=== PATIENT | female | born 1945 | race Caucasian/White ===

== ENCOUNTER 2023-07-11 07:30 | Outpatient (RCR) | payer OTHER, SELFPAY | END 2023-07-11 23:59 | disposition home or self-care (01) | LOC: RPT 07:30 | PROVIDERS: ATTENDING PHYSICIAN Family Medicine | DX: R10.9 Unspecified abdominal pain (principal); R25.3 Fasciculation; M62.830 Muscle spasm of back; Z73.6 Limitation of activities due to disability | CPT/HCPCS: 97010; 97110; 97112; 97140; 97162 ==

== ENCOUNTER → 2023-07-14 07:37 | Outpatient (REF) | payer OTHER, SELFPAY | LOC: RAD 07:37 | PROVIDERS: ATTENDING PHYSICIAN Internal Medicine Hematology & Oncology; FAMILY PHYSICIAN Family Medicine | DX: C34.32 Malignant neoplasm of lower lobe, left bronchus or lung (principal) | CPT/HCPCS: 71260; Q9967 ==

== ENCOUNTER 2023-07-21 06:44 | Outpatient (RCR) | payer OTHER, SELFPAY | END 2023-07-24 07:30 | disposition home or self-care (01) | LOC: RPT 06:44 | PROVIDERS: ATTENDING PHYSICIAN Family Medicine | DX: R10.9 Unspecified abdominal pain (principal); R25.3 Fasciculation; M62.830 Muscle spasm of back; Z73.6 Limitation of activities due to disability | CPT/HCPCS: 97110; 97140; 97535 ==

== ENCOUNTER → 2023-08-21 08:07 | Outpatient (REF) | payer OTHER, SELFPAY ==
[2023-08-21 08:35] LABS: % Eosinophils 1.5 % (0-6); % Immature Granulocytes 0.2 % (0-0.5); % Lymphocytes 40.9 % (20.5-51.1); % Monocytes 12.7 % (1.7-9.3); % Neutrophils 43.7 % (42.2-75.2); Absolute Eosinophils 0.1 10^3/uL (0-0.7); Absolute Lymphocytes 1.7 10^3/uL (1.2-3.4); Absolute Monocytes 0.5 10^3/uL (0.1-0.6); Absolute Neutrophils 1.8 10^3/uL (1.4-6.5); Hematocrit 42.1 % (37.0-47.0); Hemoglobin 14.5 g/dL (12.0-16.0); Mean Corp Hgb Conc. 34.4 g/dL (33.0-37.0); Mean Corpuscular Hgb 30.5 pg (27.0-31.0); Mean Corpuscular Volume 88.4 fL (81.0-99.0); Mean Platelet Volume 9.1 fL (7.4-10.4); Nucleated Red Blood Cells % 0 %; Platelet Count 300 10^3/uL (130-400); Red Blood Cell Count 4.76 10^6/uL (4.20-5.40); Red Cell Dist. Width 11.8 % (11.5-14.5); White Blood Cell Count 4.1 10^3/uL (4.8-10.8)
[2023-08-21 09:07] LABS: ALT (SGPT) 35 U/L (0-35); AST (SGOT) 36 U/L (14-36); Albumin 4.5 g/dl (3.5-5.0); Alkaline Phosphatase 106 U/L (38-126); Blood Urea Nitrogen 24 mg/dl (7-17); Calcium 10.4 mg/dl (8.4-10.2); Carbon Dioxide 32 mmol/L (22-30); Chloride 97 mmol/L (98-107); Glucose 105 mg/dl (70-99); Potassium 4.5 mmol/L (3.5-5.1); Sodium 136 mmol/L (135-145); Total Bilirubin 0.9 mg/dl (0.2-1.3); Total Protein 7.4 g/dl (6.3-8.2); eGFR > 60.00
== END ==
LOC: REG 08:07
PROVIDERS: ATTENDING PHYSICIAN Internal Medicine Hematology & Oncology; FAMILY PHYSICIAN Family Medicine
DX: C34.32 Malignant neoplasm of lower lobe, left bronchus or lung (principal)
CPT/HCPCS: 36415; 80053; 85025

== ENCOUNTER → 2024-01-16 08:29 | Outpatient (REF) | payer OTHER, SELFPAY ==
[2024-01-16 10:20] LABS: % Basophils 0.7 % (0-2); % Immature Granulocytes 0.2 % (0-0.5); % Lymphocytes 45.8 % (20.5-51.1); % Monocytes 9.6 % (1.7-9.3); % Neutrophils 41.7 % (42.2-75.2); Absolute Eosinophils 0.1 10^3/uL (0-0.7); Absolute Lymphocytes 2.1 10^3/uL (1.2-3.4); Absolute Monocytes 0.4 10^3/uL (0.1-0.6); Absolute Neutrophils 1.9 10^3/uL (1.4-6.5); Hematocrit 39.2 % (37.0-47.0); Hemoglobin 13.3 g/dL (12.0-16.0); Mean Corp Hgb Conc. 33.9 g/dL (33.0-37.0); Mean Corpuscular Hgb 29.4 pg (27.0-31.0); Mean Corpuscular Volume 86.5 fL (81.0-99.0); Mean Platelet Volume 9.3 fL (7.4-10.4); Nucleated Red Blood Cells % 0 %; Platelet Count 290 10^3/uL (130-400); Red Blood Cell Count 4.53 10^6/uL (4.20-5.40); Red Cell Dist. Width 12.3 % (11.5-14.5); White Blood Cell Count 4.5 10^3/uL (4.8-10.8)
[2024-01-16 15:23] LABS: ALT (SGPT) 28 U/L (0-35); AST (SGOT) 37 U/L (14-36); Albumin 4.4 g/dl (3.5-5.0); Alkaline Phosphatase 111 U/L (38-126); Blood Urea Nitrogen 17 mg/dl (7-17); Carbon Dioxide 26 mmol/L (22-30); Chloride 101 mmol/L (98-107); Glucose 98 mg/dl (70-99); HDL Cholesterol 62 mg/dl; LDL Cholesterol, Calculated 132 mg/dl; Potassium 4.8 mmol/L (3.5-5.1); Sodium 135 mmol/L (135-145); Total Bilirubin 0.8 mg/dl (0.2-1.3); Total Cholesterol 226 mg/dl (50-199); Triglyceride 164 mg/dl (10-149); Very Low Density Lipoprotein 32 mg/dl (0-30); eGFR > 60.00
== END ==
LOC: REG 08:29
PROVIDERS: ATTENDING PHYSICIAN Internal Medicine Cardiovascular Disease; FAMILY PHYSICIAN Family Medicine; REFERRING PHYSICIAN Internal Medicine Hematology & Oncology
DX: E78.5 Hyperlipidemia, unspecified (principal); C34.32 Malignant neoplasm of lower lobe, left bronchus or lung
CPT/HCPCS: 36415; 80053; 80061; 85025

== ENCOUNTER → 2024-03-14 12:11 | Outpatient (REF) | payer OTHER, SELFPAY | LOC: RAD 12:11 | PROVIDERS: ATTENDING PHYSICIAN Family Medicine | DX: M79.671 Pain in right foot (principal); M79.672 Pain in left foot | CPT/HCPCS: 73630 ==

== ENCOUNTER → 2024-03-16 08:34 | Outpatient (REF) | payer OTHER, SELFPAY ==
[2024-03-16 09:38] LABS: % Basophils 0.6 % (0-2); % Eosinophils 1.9 % (0-6); % Lymphocytes 38.8 % (20.5-51.1); % Monocytes 10.3 % (1.7-9.3); % Neutrophils 48.4 % (42.2-75.2); Absolute Eosinophils 0.1 10^3/uL (0-0.7); Absolute Lymphocytes 1.9 10^3/uL (1.2-3.4); Absolute Monocytes 0.5 10^3/uL (0.1-0.6); Absolute Neutrophils 2.3 10^3/uL (1.4-6.5); Hematocrit 40.5 % (37.0-47.0); Mean Corp Hgb Conc. 34.6 g/dL (33.0-37.0); Mean Corpuscular Hgb 30.2 pg (27.0-31.0); Mean Corpuscular Volume 87.5 fL (81.0-99.0); Nucleated Red Blood Cells % 0 %; Platelet Count 270 10^3/uL (130-400); Red Blood Cell Count 4.63 10^6/uL (4.20-5.40); Red Cell Dist. Width 12.4 % (11.5-14.5); White Blood Cell Count 4.8 10^3/uL (4.8-10.8)
[2024-03-16 10:05] LABS: ALT (SGPT) 29 U/L (0-35); AST (SGOT) 37 U/L (14-36); Albumin 4.6 g/dl (3.5-5.0); Alkaline Phosphatase 90 U/L (38-126); Blood Urea Nitrogen 19 mg/dl (7-17); Calcium 10.3 mg/dl (8.4-10.2); Carbon Dioxide 29 mmol/L (22-30); Chloride 102 mmol/L (98-107); Glucose 103 mg/dl (70-99); Potassium 4.7 mmol/L (3.5-5.1); Sodium 139 mmol/L (135-145); Total Bilirubin 0.6 mg/dl (0.2-1.3); eGFR > 60.00
== END ==
LOC: REG 08:34
PROVIDERS: ATTENDING PHYSICIAN Internal Medicine Hematology & Oncology; FAMILY PHYSICIAN Family Medicine
DX: C34.32 Malignant neoplasm of lower lobe, left bronchus or lung (principal)
CPT/HCPCS: 36415; 80053; 85025

== ENCOUNTER → 2024-03-21 11:23 | Outpatient (REF) | payer OTHER, SELFPAY | LOC: RAD 11:23 | PROVIDERS: ATTENDING PHYSICIAN Internal Medicine Hematology & Oncology; FAMILY PHYSICIAN Family Medicine | DX: C34.32 Malignant neoplasm of lower lobe, left bronchus or lung (principal) | CPT/HCPCS: 71260; 74177; Q9967 ==

== ENCOUNTER → 2024-05-27 07:55 | Outpatient (REF) | payer OTHER, SELFPAY ==
[2024-05-27 09:36] LABS: HDL Cholesterol 58 mg/dl; LDL Cholesterol, Calculated 21 mg/dl; Total Cholesterol 117 mg/dl (50-199); Triglyceride 194 mg/dl (10-149); Very Low Density Lipoprotein 38 mg/dl (0-30)
== END ==
LOC: REG 07:55
PROVIDERS: ATTENDING PHYSICIAN Internal Medicine Cardiovascular Disease
DX: E78.5 Hyperlipidemia, unspecified (principal)
CPT/HCPCS: 36415; 80061

== ENCOUNTER → 2024-05-29 07:59 | Outpatient (REF) | payer OTHER, SELFPAY | LOC: WDC 07:59 | PROVIDERS: ATTENDING PHYSICIAN Family Medicine | DX: Z12.31 Encounter for screening mammogram for malignant neoplasm of breast (principal) | CPT/HCPCS: 77063; 77067 ==

== ENCOUNTER → 2024-06-11 07:51 | Outpatient (REF) | payer OTHER, SELFPAY ==
[2024-06-11 08:21] LABS: Ionized Calcium 1.32 mMOL/L (1.15-1.33)
[2024-06-11 08:29] LABS: Hemoglobin 14.1 g/dL (12.0-16.0); Mean Corp Hgb Conc. 34.4 g/dL (33.0-37.0); Mean Corpuscular Hgb 30.1 pg (27.0-31.0); Mean Corpuscular Volume 87.4 fL (81.0-99.0); Mean Platelet Volume 9.2 fL (7.4-10.4); Platelet Count 284 10^3/uL (130-400); Red Blood Cell Count 4.69 10^6/uL (4.20-5.40); Red Cell Dist. Width 12.6 % (11.5-14.5)
[2024-06-11 08:49] LABS: ALT (SGPT) 28 U/L (0-35); AST (SGOT) 33 U/L (14-36); Albumin 4.5 g/dl (3.5-5.0); Alkaline Phosphatase 83 U/L (38-126); Blood Urea Nitrogen 18 mg/dl (7-17); Calcium 10.2 mg/dl (8.4-10.2); Carbon Dioxide 30 mmol/L (22-30); Chloride 100 mmol/L (98-107); Glucose 106 mg/dl (70-99); Potassium 4.5 mmol/L (3.5-5.1); Sodium 138 mmol/L (135-145); Total Bilirubin 0.8 mg/dl (0.2-1.3); eGFR > 60.00
[2024-06-11 09:21] LABS: % Eosinophils 2.7 % (0-6); % Monocytes 10.2 % (1.7-9.3); % Neutrophils 30.1 % (42.2-75.2); Absolute Eosinophils 0.1 10^3/uL (0-0.7); Absolute Lymphocytes 2.3 10^3/uL (1.2-3.4); Absolute Monocytes 0.4 10^3/uL (0.1-0.6); Absolute Neutrophils 1.2 10^3/uL (1.4-6.5); Nucleated Red Blood Cells % 0 %
[2024-06-11 09:39] LABS: Vitamin B12 > 1000 pg/ml (239-931)
[2024-06-12 10:41] LABS: Intact PTH 57.2 pg/ml (13.6-85.8)
== END ==
LOC: REG 07:51
PROVIDERS: ATTENDING PHYSICIAN Family Medicine
DX: R25.3 Fasciculation (principal)
CPT/HCPCS: 36415; 80053; 82330; 82607; 83970; 84443; 85025

== ENCOUNTER → 2024-09-06 08:56 | Outpatient (REF) | payer OTHER, SELFPAY ==
[2024-09-06 09:49] LABS: % Basophils 0.7 % (0-2); % Eosinophils 0.9 % (0-6); % Immature Granulocytes 0.2 % (0-0.5); % Lymphocytes 38.1 % (20.5-51.1); % Monocytes 9.3 % (1.7-9.3); % Neutrophils 50.8 % (42.2-75.2); Absolute Lymphocytes 1.7 10^3/uL (1.2-3.4); Absolute Monocytes 0.4 10^3/uL (0.1-0.6); Absolute Neutrophils 2.3 10^3/uL (1.4-6.5); Hematocrit 39.9 % (37.0-47.0); Mean Corp Hgb Conc. 35.1 g/dL (33.0-37.0); Mean Corpuscular Hgb 30.6 pg (27.0-31.0); Mean Corpuscular Volume 87.1 fL (81.0-99.0); Mean Platelet Volume 9.2 fL (7.4-10.4); Nucleated Red Blood Cells % 0 %; Platelet Count 273 10^3/uL (130-400); Red Blood Cell Count 4.58 10^6/uL (4.20-5.40); Red Cell Dist. Width 12.2 % (11.5-14.5); White Blood Cell Count 4.4 10^3/uL (4.8-10.8)
[2024-09-06 10:39] LABS: Free T4 1.06 ng/dl (0.78-2.19)
[2024-09-06 10:53] LABS: TSH 1.69 uIU/ml (0.47-4.68)
[2024-09-06 11:18] LABS: Calcium 10.6 mg/dl (8.4-10.2)
[2024-09-07 09:37] LABS: Intact PTH 53.5 pg/ml (13.6-85.8)
== END ==
LOC: REG 08:56
PROVIDERS: ATTENDING PHYSICIAN Family Medicine
DX: R79.89 Other specified abnormal findings of blood chemistry (principal); R25.3 Fasciculation
CPT/HCPCS: 36415; 83970; 84439; 84443; 85025

== ENCOUNTER → 2024-11-19 11:39 | Outpatient (REF) | payer OTHER, SELFPAY | LOC: DHSLP 11:39 | PROVIDERS: ATTENDING PHYSICIAN Internal Medicine Critical Care Medicine; FAMILY PHYSICIAN Family Medicine | DX: G47.30 Sleep apnea, unspecified (principal); R06.83 Snoring | CPT/HCPCS: 95800 ==

== ENCOUNTER 2024-12-21 15:21 | Emergency (ER) | payer OTHER, SELFPAY ==
[2024-12-21 15:22] VITALS: BP 198/99
[2024-12-21 15:47] LABS: Hematocrit 39.3 % (37.0-47.0); Hemoglobin 13.8 g/dL (12.0-16.0); Mean Corp Hgb Conc. 35.1 g/dL (33.0-37.0); Mean Corpuscular Volume 86.4 fL (81.0-99.0); Nucleated Red Blood Cells % 0 %; Platelet Count 283 10^3/uL (130-400); Red Cell Dist. Width 12.0 % (11.5-14.5)
[2024-12-21 16:02] LABS: ALT (SGPT) 26 U/L (0-35); AST (SGOT) 36 U/L (14-36); Albumin 4.6 g/dl (3.5-5.0); Alkaline Phosphatase 94 U/L (38-126); Blood Urea Nitrogen 19 mg/dl (7-17); Calcium 10.1 mg/dl (8.4-10.2); Carbon Dioxide 26 mmol/L (22-30); Chloride 99 mmol/L (98-107); Glucose 107 mg/dl (70-99); Potassium 4.3 mmol/L (3.5-5.1); Sodium 131 mmol/L (135-145); Total Protein 7.5 g/dl (6.3-8.2); eGFR > 60.00
[2024-12-21 16:03] LABS: Troponin I < 0.012 ng/ml
[2024-12-21 16:12] VITALS: BP 216/91
--- NOTE | 2024-12-21 16:54 | ED.GENMED ---
History of Present Illness
<George Moreno MD, Resident - Last Filed: 12/21/24 17:33>
General
Chief Complaint: Blood Pressure Problem
Source: patient and family
Exam Limitations: none
Time Seen by Provider: 12/21/24 16:37
Nursing documentation reviewed up to this point in time: agreed with
History of Present Illness
History of Present Illness:
This is a 79-year-old female with known history of hypertension, hyperlipidemia, unclear CVA; on Plavix presenting in the emergency department with concerns of elevated blood pressure. She states that she is on metoprolol ER 100 mg daily and since
her blood pressure was not well-controlled her chefs started her on Cardura 1 mg daily however she developed itching around the face and it was discontinued [address] ago[address] [employer] [address] Costa recommended patient to see on Monday.
Today patient was checking her blood pressure as she does routinely and she noticed her blood pressure was elevated with systolic blood pressure and 170, she took her metoprolol, blood pressure remained elevated and went up to 191/105 which prompted
her to visit the emergency department. She denies any chest pain, vision changes, trouble breathing, changes in bowels, any urinary symptoms or any other neurological deficits.
Past History
<George Moreno MD, Resident - Last Filed: 12/21/24 17:33>
Past History
ED Past Medical History: Cancer (Lung cancer s/p lobectomy in 2020), HTN and Hypercholesterolemia
ED Past Surgical History: Gynecological and Orthopedic
Patient has exhibited threatening behavior?: No
Social History
Tobacco: Non-smoker
Alcohol: None
Living: with family
Family History
Family History: Other (Noncontributory)
Review of Systems
<George Moreno MD, Resident - Last Filed: 12/21/24 17:33>
Review of Systems
Allergies reviewed?: Yes
Constitutional: Denies fever, fatigue, night sweats or chills
EENT: Denies sore throat
Respiratory: Denies cough
Cardiac: Denies chest pain
ABD/GI: Denies abdominal pain
: Denies dysuria
Musculoskeletal: Denies joint pain
Skin: Denies itching
Neurological: Denies dizzy
Endocrine: Denies polyuria
Hematologic/Lymphatic: Denies bleeding
Phy Exam
<George Moreno MD, Resident - Last Filed: 12/21/24 17:33>
General Physical Exam
General Presentation: well appearing and no apparent distress
General age: appears stated age
General Skin: warm
General Habitus: normal
General Mental: alert
General Hydration: appears well hydrated
Cardiovascular Exam
Cardiovascular Exam: regular rate/rhythm and no murmur
Pulmonary Exam
Pulmonary Exam: lungs clear, no respiratory distress, no rales, no crackles and no cough
Gastrointestinal Exam
Gastrointestinal Exam: normal bowel sounds, non tender, soft and non distended
Neurological Exam
Neurological Exam: alert, oriented x3, CN II-XII intact, no motor deficits and no sensory deficits
Musculoskeletal Exam
Musculoskeletal Exam: full ROM
Psychiatric Exam
Psychiatric Exam: normal mood/affect
Course
<George Moreno MD, Resident - Last Filed: 12/21/24 17:33>
Orders/Labs/Results
Orders:
Orders
12/21/24 15:26
Electrocardiogram (*1) Urgent
Reason for Study: Hypertension, Benign
EKG- Treatment ONCE
12/21/24 15:31
Complete Blood Count/With Diff Urgent
Comprehensive Metabolic Panel Urgent
Troponin I Urgent
12/21/24 17:07
Lisinopril [Zestril] 10 mg PO NOW STA
Abnormal Lab Results
12/21/24
15:31
Sodium 131 L mmol/L
(135-145)
BUN 19 H mg/dl
(7-17)
Glucose 107 H mg/dl
(70-99)
12/21/24 15:31
12/21/24 15:31
Vital Signs
Initial and Last Documented VS:
Initial Vital Signs
Temp Pulse Resp BP Pulse Ox
97.9 F 80 18 198/99 98
12/21/24 15:22 12/21/24 15:22 12/21/24 15:22 12/21/24 15:22 12/21/24 15:22
Last Documented Vital Signs
Temp Pulse Resp BP Pulse Ox
97.9 F 68 12 198/84 62
12/21/24 15:22 12/21/24 17:17 12/21/24 17:15 12/21/24 17:17 12/21/24 17:21
<Nick Lopes, DO - Last Filed: 12/21/24 17:24>
Orders/Labs/Results
Orders:
Orders
12/21/24 15:26
Electrocardiogram (*1) Urgent
Reason for Study: Hypertension, Benign
EKG- Treatment ONCE
12/21/24 15:31
Complete Blood Count/With Diff Urgent
Comprehensive Metabolic Panel Urgent
Troponin I Urgent
12/21/24 17:07
Lisinopril [Zestril] 10 mg PO NOW STA
Abnormal Lab Results
12/21/24
15:31
Sodium 131 L mmol/L
(135-145)
BUN 19 H mg/dl
(7-17)
Glucose 107 H mg/dl
(70-99)
12/21/24 15:31
12/21/24 15:31
Vital Signs
Initial and Last Documented VS:
Initial Vital Signs
Temp Pulse Resp BP Pulse Ox
97.9 F 80 18 198/99 98
12/21/24 15:22 12/21/24 15:22 12/21/24 15:22 12/21/24 15:22 12/21/24 15:22
Last Documented Vital Signs
Temp Pulse Resp BP Pulse Ox
97.9 F 68 12 198/84 62
12/21/24 15:22 12/21/24 17:17 12/21/24 17:15 12/21/24 17:17 12/21/24 17:21
<George Moreno MD, Resident - Last Filed: 12/21/24 17:33>
MDM/Problems Addressed
Differential Diagnosis Includes:
Hypertensive urgency vs hypertensive emergency
MDM/Problems Addressed:
CBC, CMP, tropes, EKG
update: CBC unremarkable. CMP with mild hyponatremia, borderline elevated BUN and mild elevation of blood glucose. Troponin undetectable. EKG with normal sinus rhythm.
will give lisinopril 10 mg p.o. in the emergency department. Prescription for lisinopril 10 mg p.o. daily sent to the pharmacy for 2 weeks while patient waiting to follow-up with outpatient cardiology. Shared decision with the patient. Patient
voices understanding agree with the plan. Patient is stable for discharge. Advised the patient to return to the emergency room if she develops any chest pain, shortness of breath, severe headache or any other worrisome symptoms.
Chronic conditions affecting care: HTN
<George Moreno MD, Resident - Last Filed: 12/21/24 17:33>
*Pulse Oximetry
SaO2: 98
Oxygen Mode of Delivery: Room air
Patient hypoxic: no
*Critical Care Note
Total Time (30-74mins, 75-104mins- exclusive of procedures): Not Applicable
ED Attending Note
<George Moreno MD, Resident - Last Filed: 12/21/24 17:33>
-
Portions of this chart may have been created with voice recognition software.� Occasional wrong word or��sound alike� substitutions may have occurred due to the inherent limitations of voice recognition software.
<Nick Lopes, DO - Last Filed: 12/21/24 17:24>
ED Attending Note
Patient seen and examined by attending physician: Yes
I performed a history and physical exam of patient and discussed management with resident, I reviewed resident's note and agree with documented findings and plan of care.: Yes
ED Attending Note:
I have seen and evaluated the patient with a [id number] encounter. I have spoken to the advance practicer provider and involved in the medical history, the physical exam, medical decision making.
Evaluation and management service: agree unless noted differently below.
Results interpretation: agree unless noted differently below.
Focused HPI: 79-year-old female presenting for evaluation of asymptomatic hypertension. Patient has been on metoprolol chronically. Due to increasing blood pressure, her cardiology team placed her on a new medicine. She was having trouble
tolerating it so she stopped it. She noticed that her blood pressure was elevated patient denies chest pain or shortness of breath
Physical exam: Sitting bed comfortably. Heart regular rhythm. No acute distress. No leg edema
Medical Decision Making: She has follow-up with cardiology on Monday. Will start lisinopril until then. Patient does not meet criteria for hypertension
Discharge Plan
Departure
Patient Disposition: Home (Routine Discharge)
Date of Disposition: 12/21/24
Time of Disposition: 17:30
Patient with high blood pressure during this ER visit?: Yes
Condition: Fair
Discharge Problem:
Hypertensive urgency
Instructions: High Blood Pressure (DC)
Prescriptions:
New
lisinopril 10 mg tablet
10 mg PO DAILY Qty: 14 0RF
No Action
hydralazine 10 MG tablet
10 mg PO BID
metoprolol succinate 50 MG tablet extended release 24 hr
200 mg PO DAILY
calcium carbonate-vitamin D3 1 EACH tablet
1 ea PO DAILY
Preservision With Lutein
1 cap PO BID
ascorbic acid (vitamin C) [Vitamin C] 500 MG tablet
500 mg PO DAILY
clopidogrel 75 MG tablet
75 mg PO DAILY Qty: 30 0RF
lansoprazole [Prevacid] 15 MG capsule,delayed release(DR/EC)
15 mg PO DAILY
magnesium 250 MG tablet
250 mg PO DAILY
ezetimibe 10 MG tablet
10 mg PO HS
coenzyme [id number] E 1 CAP capsule
1 cap PO BID
Referrals:
Irma Mejia DO [Family Provider, Family Practice]
Activity Restrictions/Additional Instructions:
You were seen at [facility] emergency department with concerns of high blood pressure. While you are in the hospital we performed blood work including complete blood count, complete metabolic panel, serum troponin, EKG. While the workup
was negative. You received 1 dose of lisinopril 10 mg in the emergency department. A prescription of lisinopril 10 mg tablet sent to the pharmacy please use it daily while you are waiting for a chefs appointment to discuss further treatment
options/recommendations. Please return to the emergency department if you develop any chest pain, shortness of breath or any other worrisome symptoms.
Interventions
Interventions:
*Risk Screen - Suicide Last Done: 12/21/24 15:22
*General Assessment Last Done: 12/21/24 15:22
*Neglect/Abuse Screening Last Done: 12/21/24 15:22
*ED- Fall Risk Assessment Last Done: 12/21/24 17:18
*ED COVID-19 Vaccine History Last Done: 12/21/24 17:18
ED- Cardiac Assessment Last Done: 12/21/24 17:21
ED- Neurological Assessment Last Done: 12/21/24 17:21
ED- Pulmonary Assessment Last Done: 12/21/24 17:21
Discharge Date and Time
Print Language: ANDORRAN
[2024-12-21 17:13] VITALS: BP 198/84
[2024-12-21] MEDS: ZESTRIL 10 MG PO (17:14)
[2024-12-21 17:17] VITALS: BP 198/84; BMI 31.1
== END 2024-12-21 18:00 | disposition home or self-care (01) ==
LOC: EMR 15:21
PROVIDERS: EMERGENCY PHYSICIAN Student in an Organized Health Care Education/Training Program; FAMILY PHYSICIAN Family Medicine
DX: I16.0 Hypertensive urgency (principal); E87.1 Hypo-osmolality and hyponatremia; I10 Essential (primary) hypertension; E78.00 Pure hypercholesterolemia, unspecified; M19.90 Unspecified osteoarthritis, unspecified site; Z85.118 Personal history of other malignant neoplasm of bronchus and lung; Z86.73 Personal history of transient ischemic attack (TIA), and cerebral infarction without residual deficits; Z79.02 Long term (current) use of antithrombotics/antiplatelets; Z79.899 Other long term (current) drug therapy; Z90.2 Acquired absence of lung [part of]; Z88.1 Allergy status to other antibiotic agents; Z88.3 Allergy status to other anti-infective agents; Z88.0 Allergy status to penicillin; Z88.2 Allergy status to sulfonamides
CPT/HCPCS: 99283; 80053; 84484; 85025; 93005

== ENCOUNTER → 2025-01-01 14:37 | Outpatient (REF) | payer OTHER, SELFPAY ==
[2025-01-01 15:41] LABS: Blood Urea Nitrogen 19 mg/dl (7-17); Calcium 9.9 mg/dl (8.4-10.2); Carbon Dioxide 27 mmol/L (22-30); Chloride 98 mmol/L (98-107); Glucose 93 mg/dl (70-99); Potassium 4.4 mmol/L (3.5-5.1); Sodium 130 mmol/L (135-145); eGFR > 60.00
== END ==
LOC: REG 14:37
PROVIDERS: ATTENDING PHYSICIAN Physician Assistant Medical; FAMILY PHYSICIAN Family Medicine
DX: I10 Essential (primary) hypertension (principal)
CPT/HCPCS: 36415; 80048

== ENCOUNTER → 2025-01-21 07:39 | Outpatient (REF) | payer OTHER, SELFPAY ==
[2025-01-21 09:18] LABS: Hematocrit 39.9 % (37.0-47.0); Hemoglobin 13.5 g/dL (12.0-16.0); Mean Corp Hgb Conc. 33.8 g/dL (33.0-37.0); Mean Corpuscular Volume 88.9 fL (81.0-99.0); Nucleated Red Blood Cells % 0 %; Platelet Count 295 10^3/uL (130-400); Red Cell Dist. Width 11.8 % (11.5-14.5)
[2025-01-21 11:49] LABS: ALT (SGPT) 22 U/L (0-35); AST (SGOT) 30 U/L (14-36); Albumin 4.5 g/dl (3.5-5.0); Alkaline Phosphatase 90 U/L (38-126); Blood Urea Nitrogen 19 mg/dl (7-17); Calcium 9.7 mg/dl (8.4-10.2); Carbon Dioxide 27 mmol/L (22-30); Chloride 101 mmol/L (98-107); Glucose 96 mg/dl (70-99); Magnesium 2.2 mg/dl (1.6-2.3); Potassium 5.0 mmol/L (3.5-5.1); Sodium 135 mmol/L (135-145); Total Protein 6.9 g/dl (6.3-8.2); eGFR > 60.00
== END ==
LOC: REG 07:39
PROVIDERS: ATTENDING PHYSICIAN Internal Medicine Gastroenterology; FAMILY PHYSICIAN Family Medicine; REFERRING PHYSICIAN Internal Medicine Cardiovascular Disease
DX: K21.00 Gastro-esophageal reflux disease with esophagitis, without bleeding (principal)
CPT/HCPCS: 36415; 80053; 82248; 83735; 85025

== ENCOUNTER → 2025-03-29 08:42 | Outpatient (REF) | payer OTHER, SELFPAY | LOC: RAD 08:42 | PROVIDERS: ATTENDING PHYSICIAN Internal Medicine Critical Care Medicine; FAMILY PHYSICIAN Family Medicine | DX: C34.90 Malignant neoplasm of unspecified part of unspecified bronchus or lung (principal); R93.89 Abnormal findings on diagnostic imaging of other specified body structures | CPT/HCPCS: 71250 ==

== ENCOUNTER → 2025-04-05 08:29 | Outpatient (REF) | payer OTHER, SELFPAY | LOC: REG 08:29 | PROVIDERS: ATTENDING PHYSICIAN Internal Medicine Cardiovascular Disease; FAMILY PHYSICIAN Family Medicine | DX: I10 Essential (primary) hypertension (principal); R09.89 Other specified symptoms and signs involving the circulatory and respiratory systems | CPT/HCPCS: 36415; 82088; 84244 ==

== ENCOUNTER → 2025-04-17 08:59 | Outpatient (REF) | payer OTHER, SELFPAY ==
[2025-04-17 10:58] LABS: Blood Urea Nitrogen 21 mg/dl (7-17); Calcium 10.1 mg/dl (8.4-10.2); Carbon Dioxide 28 mmol/L (22-30); Chloride 97 mmol/L (98-107); Glucose 105 mg/dl (70-99); Potassium 5.0 mmol/L (3.5-5.1); Sodium 129 mmol/L (135-145); eGFR > 60.00
== END ==
LOC: REG 08:59
PROVIDERS: ATTENDING PHYSICIAN Internal Medicine Cardiovascular Disease; FAMILY PHYSICIAN Family Medicine
DX: I10 Essential (primary) hypertension (principal)
CPT/HCPCS: 36415; 80048

== ENCOUNTER → 2025-04-25 08:21 | Outpatient (REF) | payer OTHER, SELFPAY ==
[2025-04-25 11:17] LABS: Blood Urea Nitrogen 23 mg/dl (7-17); Calcium 10.4 mg/dl (8.4-10.2); Carbon Dioxide 28 mmol/L (22-30); Chloride 100 mmol/L (98-107); Glucose 97 mg/dl (70-99); Potassium 4.7 mmol/L (3.5-5.1); Sodium 131 mmol/L (135-145); eGFR > 60.00
== END ==
LOC: REG 08:21
PROVIDERS: ATTENDING PHYSICIAN Internal Medicine Cardiovascular Disease; FAMILY PHYSICIAN Family Medicine
DX: I10 Essential (primary) hypertension (principal); R79.89 Other specified abnormal findings of blood chemistry
CPT/HCPCS: 36415; 80048

== ENCOUNTER → 2025-05-28 09:26 | Outpatient (REF) | payer OTHER, SELFPAY | LOC: RAD 09:26 | PROVIDERS: ATTENDING PHYSICIAN Family Medicine | DX: M85.88 Other specified disorders of bone density and structure, other site (principal) | CPT/HCPCS: 77080 ==

== ENCOUNTER → 2025-06-02 07:54 | Outpatient (REF) | payer OTHER, SELFPAY | LOC: WDC 07:54 | PROVIDERS: ATTENDING PHYSICIAN Family Medicine | DX: Z12.31 Encounter for screening mammogram for malignant neoplasm of breast (principal) | CPT/HCPCS: 77063; 77067 ==